=== PATIENT | male | born 1965 | race Caucasian/White ===

== ENCOUNTER 2016-10-23 14:58 | Observation (INO) | payer BC, OTHER ==
[~2016-10-23] VITALS: Ht 182.9 cm; Wt 93.6 kg
[~2016-10-23 14:58] MED LIST: ALLDSR/24 PO; FLUT50SP14 NAE
--- NOTE | 2016-10-23 15:16 | EMERGENCY ROOM VISIT NOTE ---
History First contact with patient: 15:07 Chief Complaint: ABDOMINAL PAIN Stated Complaint: STOMACH PAIN AFTER, UPPER GI PROCEDURE TODAY Nursing Triage Summary: Pt states he had an upper GI today and now has pain in stomach, left rib cage and bilateral lower back. Pt states he can't because "as soon as it goes down it's a Knifing pain" Mansoor told him to come in. History of Present Illness The patient is a 50 year old male who presents to the Emergency Room with complaints of 8/10 severity sharp abdominal pain s/p EGD with dilation of Schatzki's ring. After getting home after his EGD this morning he then started having mild but progressively getting worse pain. Started under upper left rib cage then moved to epigastric region and under right rib cage. Worse on lying down and eating/drinking. No change in bowel habit, no GI bleeding. He denies dizziness, shortness of breath, chest pain, fevers or chills. 9:15 am started having pain. Dr Max. Pain in upper abdomen started in upper left rib cage then moved to stomach then travelled to middle worse on lying down. worse on eating and drinking. No change blood, change in bowel habit, no nausea or vomiting. No SOB or chest pain. No fevers or chills. Review of Systems See HPI for pertinent positives & negatives. A total of 10 systems reviewed and were otherwise negative. 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) Current/Historical Medications Scheduled Fexofenadine-Pseudoephedrine (Lianet-D 24 Hour Allergy), 1 TAB PO DAILY Fluticasone Propionate (Flonase Nasal [place]), 2 SPRAYS FLORY DAILY Allergies Coded Allergies: No Known Allergies (Unverified , 10/23/16) Physical Exam Vital Signs Date Time Temp Pulse Resp B/P (MAP) Pulse Ox O2 Delivery O2 Flow Rate FiO2 10/23/16 17:00 79 18 148/122 96 Room Air 10/23/16 15:02 76 16 138/92 95 Physical Exam VITAL SIGNS: were reviewed as above GENERAL: no acute distress while standing, mild pain on lying down SKIN: Warm dry and pink, no rashes OROPHARYNX: non erythematous, clear and moist NECK: Supple, no adenopathy or meningismus LUNGS: Chest non tender, clear to auscultation, no accessory muscle use HEART: Regular rate and rhythm, heart sounds 1+2, no murmurs ABDOMEN: Mild tenderness over central abdomen without rebound or guarding, soft , bowel sounds normal BACK: no CVA tenderness, no central spinal tenderness EXTREMITIES: Warm and well perfused, no calf tenderness/swelling, no pedal edema. NEUROLOGICALLY: Awake alert and oriented without overt focal deficit. Medical Decision & Procedures ER Provider Diagnostic Interpretation: CHEST CT WITH CONTRAST CT DOSE: 240.17 mGy.cm HISTORY: Pain with quick prep as discussed with Dr Ventura TECHNIQUE: Multiaxial CT images of the chest were performed following the intravenous administration of contrast. COMPARISON: None. FINDINGS: The lungs are considered clear. No evidence for pneumothorax or infiltrate. Contrast is a is identified within the esophagus. Fixed lateral hernia is present. There is a linear contrast collection within the left lateral wall of the mid esophagus measuring approximately 3 x 0.5 cm. There is no evidence for extraluminal extension. This appears to be a focal partial tear of the mid thoracic esophagus. There is again no contrast extension to the periesophageal structures. A hiatal hernia is present. Stomach appears to be unremarkable. There is no free air. There is a right pericardial cyst. There are several small hepatic cysts throughout the right as well as left hepatic lobe. IMPRESSION: 1. Linear partial thickness tear of the mid thoracic esophagus. 2. Contrast is seen anteriorly in the left lateral wall of the mid thoracic esophagus, with no evidence for extrinsic extension of contrast to the surrounding soft tissues.. 3. This is consistent with a partial thickness tear of the esophageal wall. 4. Lungs appear clear with the stomach unremarkable. Electronically signed by: Anshul Wiseman M.D. 10/23/2016 4:21 PM Dictated Date/Time: 10/23/2016 4:12 PM Laboratory Results 10/23/16 15:23 Red Blood Count 5.11, Mean Corpuscular Volume 91.2, Mean Corpuscular Hemoglobin 29.7, Mean Corpuscular Hemoglobin Concent 32.6, Mean Platelet Volume 8.8, Neutrophils (%) (Auto) 72.6, Lymphocytes (%) (Auto) 18.5, Monocytes (%) (Auto) 6.2, Eosinophils (%) (Auto) 2.4, Basophils (%) (Auto) 0.2, Neutrophils # (Auto) 7.71, Lymphocytes # (Auto) 1.97, Monocytes # (Auto) 0.66, Eosinophils # (Auto) 0.25, Basophils # (Auto) 0.02 10/23/16 15:23 Test 10/23/16 15:23 10/23/16 15:37 10/23/16 15:40 White Blood Count 10.62 K/uL (4.8-10.8) Red Blood Count 5.11 M/uL (4.7-6.1) Hemoglobin 15.2 g/dL (14.0-18.0) Hematocrit 46.6 % (42-52) Mean Corpuscular Volume 91.2 fL (80-100) Mean Corpuscular Hemoglobin 29.7 pg (25-34) Mean Corpuscular Hemoglobin Concent 32.6 g/dl (32-36) Platelet Count 198 K/uL (130-400) Mean Platelet Volume 8.8 fL (7.4-10.4) Neutrophils (%) (Auto) 72.6 % Lymphocytes (%) (Auto) 18.5 % Monocytes (%) (Auto) 6.2 % Eosinophils (%) (Auto) 2.4 % Basophils (%) (Auto) 0.2 % Neutrophils # (Auto) 7.71 K/uL (1.4-6.5) Lymphocytes # (Auto) 1.97 K/uL (1.2-3.4) Monocytes # (Auto) 0.66 K/uL (0.11-0.59) Eosinophils # (Auto) 0.25 K/uL (0-0.5) Basophils # (Auto) 0.02 K/uL (0-0.2) RDW Standard Deviation 43.0 fL (36.4-46.3) RDW Coefficient of Variation 12.9 % (11.5-14.5) Immature Granulocyte % (Auto) 0.1 % Immature Granulocyte # (Auto) 0.01 K/uL (0.00-0.02) Est Creatinine Clear Calc Drug Dose 73.5 ml/min Estimated GFR () 74.3 Estimated GFR (Non- 64.1 BUN/Creatinine Ratio 6.3 (10-20) Calcium Level 8.8 mg/dl (8.5-10.1) Total Bilirubin 0.8 mg/dl (0.2-1) Direct Bilirubin 0.2 mg/dl (0-0.2) Aspartate Amino Transf (AST/SGOT) 15 U/L (15-37) Alanine Aminotransferase (ALT/SGPT) 21 U/L (12-78) Alkaline Phosphatase 82 U/L (45-117) Total Protein 7.3 gm/dl (6.4-8.2) Albumin 3.9 gm/dl (3.4-5.0) Lipase 122 U/L (73-393) Bedside Hemoglobin 15.3 g/dl (14.0-18.0) Bedside Hematocrit 45 % (42-52) Bedside Sodium 141 mEq/L (135-144) Bedside Potassium 3.9 mEq/L (3.3-5.0) Bedside Chloride 99 mEq/L (101-112) Bedside Total CO2 29 mEq/l (24-31) Anion Gap 18.0 mmol/L (16-25) Bedside Blood Urea Nitrogen 8 mg/dl (7-18) Bedside Creatinine 1.0 mg/dl (0.6-1.3) Bedside Glucose (other) 98 mg/dl (70-99) Bedside Ionized Calcium (Carina) 1.13 mmol/l (1.12-1.32) Urine Color YELLOW Urine Appearance CLEAR (CLEAR) Urine pH 7.0 (4.5-7.5) Urine Specific [place] 1.010 (1.000-1.030) Urine Protein NEG (NEG) Urine Glucose (UA) NEG (NEG) Urine Ketones NEG (NEG) Urine Occult Blood NEG (NEG) Urine Nitrite NEG (NEG) Urine Bilirubin NEG (NEG) Urine Urobilinogen NEG (NEG) Urine Leukocyte Esterase NEG (NEG) Medications Administered Medications (Trade) Dose Ordered Sig/Tona Route Start Time Stop Time Status Last Admin Dose Admin Sodium Chloride 1,000 ml @ 150 mls/hr [id number] IV 10/23/16 17:34 11/22/16 17:33 10/23/16 21:37 150 MLS/HR ED Course 17[facility] for [facility] Medical Decision Prior records/ancillary studies reviewed. Triage Nursing notes reviewed. Additional history obtained from patient and Isi Ching The patient's history was concerning for abdominal pain s/p EGD with dilation. Differential diagnosis: Etiologies such as esophageal tear, gastric perforation, appendicitis, diverticulitis, PUD, biliary pathology, UTI, pancreatitis, obstruction, mesenteric ischemia, aortic pathology, infections, inflammatory bowel disease, renal colic, as well as others were entertained. Physical examination findings: As above. ER treatment provided: IV fluids On reassessment the patient felt the same, denied any need for pain medication. Diagnostics interpreted by me: The labs were unremarkable Imaging studies: CT showed linear partial thickness tear of the mid thoracic esophagus Consultation: A consultation was placed with Adan TAVERAS. The case was discussed and diagnostics were reviewed. The patient was evaluated in the ER for further treatment. A consultation was placed with [facility]. The case was discussed and diagnostics were reviewed. The patient was evaluated in the ER for further treatment. Consistent examination and CT of partial esophageal tear. By the evaluation outlined above emergent etiologies such as appendicitis, diverticulitis, PUD, biliary pathology, UTI, pancreatitis, obstruction, mesenteric ischemia, aortic pathology, infections, inflammatory bowel disease, renal colic, as well as others were deemed relatively unlikely. The patient was informed about the findings as listed above. All questions were answered and he was pleased with the treatment. Consults Time Called: 16:00 Consulting Physician: Adan TAVERAS (Isi Ching) Returned Call: 16:35 Already saw patient but need to speak to Dr Max Returned call at 16:[address] Gabriel who advised NPO, IVF, Pantoprazole 40 mg BID, Additional Consults: Time Called: 16:57 [facility]Dr Wong[facility] Returned Call: 17:05 Additional Comments: Discussed plan from GI team and need for admission, accepted patient for evaluation Impression Primary Impression: Esophageal tear Departure Information Dispostion Home / Self-Care Condition GOOD Referrals No Doctor, Assigned (PCP) Marva Miller, DO Patient Instructions My [facility] Resident Tracking Resident Involvement: Resident Care Provided Care Provided: Adult ED Problem Qualifiers Primary Impression: Esophageal tear Encounter type: initial encounter Qualified Codes: S11.21XA - Laceration without foreign body of pharynx and cervical esophagus, initial encounter
[2016-10-23] MEDS ORDERED: OPTIRAY 320 IV PRN (15:30)
[2016-10-23 15:38] LABS: BASO % 0.2 %; BASO ABS # 0.02 K/uL (0-0.2); COMPLETE YES; EOS % 2.4 %; HEMATOCRIT 46.6 % (42-52); IG% 0.1 %; LYMPH % 18.5 %; LYMPH ABS # 1.97 K/uL (1.2-3.4); MEAN CELL VOLUME 91.2 fL (80-100); MEAN CORPUSCULAR HEMOGLOBIN 29.7 pg (25-34); MEAN CORPUSCULAR HGB CONC 32.6 g/dl (32-36); MEAN PLATELET VOLUME 8.8 fL (7.4-10.4); MONO % 6.2 %; NEUT % 72.6 %; PLATELET COUNT 198 K/uL (130-400); RED BLOOD COUNT 5.11 M/uL (4.7-6.1); WHITE BLOOD COUNT 10.62 K/uL (4.8-10.8)
[2016-10-23 15:54] LABS: ISTAT HEMOGLOBIN 15.3 g/dl (14.0-18.0); ISTAT IONIZED CALCIUM 1.13 mmol/l (1.12-1.32)
[2016-10-23 15:55] LABS: BUN/CREATININE RATIO 6.3 (10-20); CALCIUM 8.8 mg/dl (8.5-10.1); CREATININE 1.3 mg/dl (0.60-1.40); POTASSIUM 3.8 mmol/L (3.5-5.1)
--- NOTE | 2016-10-23 16:02 | Progress Note ---
Progress Note Date of Service Oct 23, 2016. (Isi Ching ., PAT) Progress Note Pt was seen and evaluated in B9 at 1540. He had an EGD this morning for dysphagia with Dr. Miller - schatzki ring was dilated with a 51 English with mild resistance. Pt tolerated procedure well and was discharged home. He tells me after his procedure he developed abdominal pain. This is worse when he is sitting down, relieved when he stands up. Pain radiates to his back. Described as a sharp constant sensation that becomes sharp-stabbing with positional changes and spontaneously. Denies any fever, chills, chest pain, SOB, nausea, vomiting, regurgitation, painful/difficulty swallowing, esophageal pain, black/ bloody stools. Labs pending and VSS. EGD 10/23/16: A moderate Schatzki ring (acquired) was found in the lower third of the esophagus. A guidewire was placed and the scope was withdrawn. Dilation was performed with a Savary dilator with mild resistance at 51 Fr. Estimated blood loss was minimal. Normal mucosa was found in the middle third of the esophagus. Biopsies were taken with a cold forceps for histology. Verification of patient identification for the specimen was done by the physician and nurse using the patient's name and date. Estimated blood loss was minimal. The stomach was normal. The examined duodenum was normal No acute distress. Lungs are CTA. Heart is RRR. Abdomen is soft, non-distended with + BS. Pain likely secondary to EGD today, however suspicion for esophageal perforation is low - suggest we obtain CT to rule out esophageal perforation and admit for observation. CT reviewed - linear partial thickness tear or mid thoracic esophagus, no evidence of extraluminal extension without any contrast in the periesophageal structure. Stomach unremarkable without any free air. Admit for observation, keep NPO, IV PPI and pain control. (Isi Ching ., MARGIN ANALYST)
[2016-10-23 16:05] LABS: URINE APPEARANCE CLEAR (CLEAR); URINE BILIRUBIN NEG (NEG); URINE COLOR YELLOW; URINE NITRITE NEG (NEG); UROBILINOGEN NEG (NEG)
[2016-10-23 16:06] LABS: MANUAL MICROSCOPIC REQUIRED? NO; REVIEW REQ? NO
--- NOTE | 2016-10-23 16:22 | DIAGNOSTIC IMAGING REPORT ---
CHEST CT WITH CONTRAST CT DOSE: 240.17 mGy.cm HISTORY: Pain with quick prep as discussed with Dr Ventura TECHNIQUE: Multiaxial CT images of the chest were performed following the intravenous administration of contrast. COMPARISON: None. FINDINGS: The lungs are considered clear. No evidence for pneumothorax or infiltrate. Contrast is a is identified within the esophagus. Fixed lateral hernia is present. There is a linear contrast collection within the left lateral wall of the mid esophagus measuring approximately 3 x 0.5 cm. There is no evidence for extraluminal extension. This appears to be a focal partial tear of the mid thoracic esophagus. There is again no contrast extension to the periesophageal structures. A hiatal hernia is present. Stomach appears to be unremarkable. There is no free air. There is a right pericardial cyst. There are several small hepatic cysts throughout the right as well as left hepatic lobe. IMPRESSION: 1. Linear partial thickness tear of the mid thoracic esophagus. 2. Contrast is seen anteriorly in the left lateral wall of the mid thoracic esophagus, with no evidence for extrinsic extension of contrast to the surrounding soft tissues.. 3. This is consistent with a partial thickness tear of the esophageal wall. 4. Lungs appear clear with the stomach unremarkable. Electronically signed by: Anshul Wiseman M.D. 10/23/2016 4:21 PM Dictated Date/Time: 10/23/2016 4:12 PM
--- NOTE | 2016-10-23 16:35 | EMERGENCY ROOM VISIT NOTE ---
ED Visit Note First contact with patient: 15:01 Resident Physician Supervision Note: I interviewed and examined the patient. Discussed with Dr. Porter and agree with findings and plan as documented in the note. Documented By: Yazan Ventura Current/Historical Medications Scheduled Fexofenadine-Pseudoephedrine (Lianet-D 24 Hour Allergy), 1 TAB PO DAILY Fluticasone Propionate (Flonase Nasal [place]), 2 SPRAYS FLORY DAILY Allergies Coded Allergies: No Known Allergies (Unverified , 10/23/16) Vital Signs Date Time Temp Pulse Resp B/P (MAP) Pulse Ox O2 Delivery O2 Flow Rate FiO2 10/23/16 15:02 76 16 138/92 95 Laboratory Results 10/23/16 15:23 Red Blood Count 5.11, Mean Corpuscular Volume 91.2, Mean Corpuscular Hemoglobin 29.7, Mean Corpuscular Hemoglobin Concent 32.6, Mean Platelet Volume 8.8, Neutrophils (%) (Auto) 72.6, Lymphocytes (%) (Auto) 18.5, Monocytes (%) (Auto) 6.2, Eosinophils (%) (Auto) 2.4, Basophils (%) (Auto) 0.2, Neutrophils # (Auto) 7.71, Lymphocytes # (Auto) 1.97, Monocytes # (Auto) 0.66, Eosinophils # (Auto) 0.25, Basophils # (Auto) 0.02 10/23/16 15:23 Test 10/23/16 15:23 10/23/16 15:37 10/23/16 15:40 White Blood Count 10.62 K/uL (4.8-10.8) Red Blood Count 5.11 M/uL (4.7-6.1) Hemoglobin 15.2 g/dL (14.0-18.0) Hematocrit 46.6 % (42-52) Mean Corpuscular Volume 91.2 fL (80-100) Mean Corpuscular Hemoglobin 29.7 pg (25-34) Mean Corpuscular Hemoglobin Concent 32.6 g/dl (32-36) Platelet Count 198 K/uL (130-400) Mean Platelet Volume 8.8 fL (7.4-10.4) Neutrophils (%) (Auto) 72.6 % Lymphocytes (%) (Auto) 18.5 % Monocytes (%) (Auto) 6.2 % Eosinophils (%) (Auto) 2.4 % Basophils (%) (Auto) 0.2 % Neutrophils # (Auto) 7.71 K/uL (1.4-6.5) Lymphocytes # (Auto) 1.97 K/uL (1.2-3.4) Monocytes # (Auto) 0.66 K/uL (0.11-0.59) Eosinophils # (Auto) 0.25 K/uL (0-0.5) Basophils # (Auto) 0.02 K/uL (0-0.2) RDW Standard Deviation 43.0 fL (36.4-46.3) RDW Coefficient of Variation 12.9 % (11.5-14.5) Immature Granulocyte % (Auto) 0.1 % Immature Granulocyte # (Auto) 0.01 K/uL (0.00-0.02) Est Creatinine Clear Calc Drug Dose 73.5 ml/min Estimated GFR () 74.3 Estimated GFR (Non- 64.1 BUN/Creatinine Ratio 6.3 (10-20) Calcium Level 8.8 mg/dl (8.5-10.1) Total Bilirubin 0.8 mg/dl (0.2-1) Direct Bilirubin 0.2 mg/dl (0-0.2) Aspartate Amino Transf (AST/SGOT) 15 U/L (15-37) Alanine Aminotransferase (ALT/SGPT) 21 U/L (12-78) Alkaline Phosphatase 82 U/L (45-117) Total Protein 7.3 gm/dl (6.4-8.2) Albumin 3.9 gm/dl (3.4-5.0) Lipase 122 U/L (73-393) Bedside Hemoglobin 15.3 g/dl (14.0-18.0) Bedside Hematocrit 45 % (42-52) Bedside Sodium 141 mEq/L (135-144) Bedside Potassium 3.9 mEq/L (3.3-5.0) Bedside Chloride 99 mEq/L (101-112) Bedside Total CO2 29 mEq/l (24-31) Anion Gap 18.0 mmol/L (16-25) Bedside Blood Urea Nitrogen 8 mg/dl (7-18) Bedside Creatinine 1.0 mg/dl (0.6-1.3) Bedside Glucose (other) 98 mg/dl (70-99) Bedside Ionized Calcium (Carina) 1.13 mmol/l (1.12-1.32) Urine Color YELLOW Urine Appearance CLEAR (CLEAR) Urine pH 7.0 (4.5-7.5) Urine Specific [place] 1.010 (1.000-1.030) Urine Protein NEG (NEG) Urine Glucose (UA) NEG (NEG) Urine Ketones NEG (NEG) Urine Occult Blood NEG (NEG) Urine Nitrite NEG (NEG) Urine Bilirubin NEG (NEG) Urine Urobilinogen NEG (NEG) Urine Leukocyte Esterase NEG (NEG) Departure Information Referrals No Doctor, Assigned (PCP) Patient Instructions My [facility]
[2016-10-23] MEDS ORDERED: SODIUM CHLORIDE 0.9% 1000ML 1,000 ML IV SCH (16:45)
--- NOTE | 2016-10-23 17:15 | History and Physical ---
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 Patient had EGD for dilatation of the ring. Patient complains of LUQ abdominal pain which he describes as sharp, 8/10 intensity, radiates to back and abdomen, intermittent which lasts for few seconds, pain is worse with eating, lying down, sitting and is relived with standing. Currently denies any history of SOB, fever, chills, chest pain, nausea, vomiting, diarrhea , bloody stools, dizziness. CT chest is suggestive of linear partial thickness tear of the mid thoracic esophagus. Past Medical/Surgical History Past Medical History: Esophageal Tear Petit mal seizures as a child Past Surgical History: S/P EGD for dilatation of Schatzki's ring Family History Reviewed. 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 A total of 10 systems reviewed and were otherwise negative. Physical Exam Vital Signs Date Time Temp Pulse Resp B/P (MAP) Pulse Ox O2 Delivery O2 Flow Rate FiO2 10/23/16 17:00 79 18 148/122 96 Room Air 10/23/16 15:02 76 16 138/92 95 General Appearance: WD/WN, no apparent distress Head: normocephalic, atraumatic Eyes: normal inspection, PERRL, EOMI, sclerae normal ENT: normal ENT inspection, hearing grossly normal Neck: supple, no JVD, trachea midline Respiratory/Chest: chest non-tender, lungs clear, normal breath sounds, no respiratory distress, no accessory muscle use Cardiovascular: regular rate, rhythm, no edema, no murmur Abdomen/GI: normal bowel sounds, non tender, soft Back: normal inspection Extremities/Musculoskelatal: normal inspection, no pedal edema 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, no motor/sensory deficits, alert, normal mood/affect, oriented x 3 Skin: normal color, warm/dry Diagnostics Laboratory Results Results Past 24 Hours Test 10/23/16 15:23 10/23/16 15:37 10/23/16 15:40 Range/Units White Blood Count 10.62 4.8-10.8 K/uL Red Blood Count 5.11 4.7-6.1 M/uL Hemoglobin 15.2 14.0-18.0 g/dL Hematocrit 46.6 42-52 % Mean Corpuscular Volume 91.2 80-100 fL Mean Corpuscular Hemoglobin 29.7 25-34 pg Mean Corpuscular Hemoglobin Concent 32.6 32-36 g/dl Platelet Count 198 130-400 K/uL Mean Platelet Volume 8.8 7.4-10.4 fL Neutrophils (%) (Auto) 72.6 % Lymphocytes (%) (Auto) 18.5 % Monocytes (%) (Auto) 6.2 % Eosinophils (%) (Auto) 2.4 % Basophils (%) (Auto) 0.2 % Neutrophils # (Auto) 7.71 1.4-6.5 K/uL Lymphocytes # (Auto) 1.97 1.2-3.4 K/uL Monocytes # (Auto) 0.66 0.11-0.59 K/uL Eosinophils # (Auto) 0.25 0-0.5 K/uL Basophils # (Auto) 0.02 0-0.2 K/uL RDW Standard Deviation 43.0 36.4-46.3 fL RDW Coefficient of Variation 12.9 11.5-14.5 % Immature Granulocyte % (Auto) 0.1 % Immature Granulocyte # (Auto) 0.01 0.00-0.02 K/uL Sodium Level 142 136-145 mmol/L Potassium Level 3.8 3.5-5.1 mmol/L Chloride Level 104 98-107 mmol/L Carbon Dioxide Level 31 21-32 mmol/L Anion Gap 7.0 18.0 16-25 mmol/L Blood Urea Nitrogen 8 7-18 mg/dl Creatinine 1.30 0.60-1.40 mg/dl Est Creatinine Clear Calc Drug Dose 73.5 ml/min Estimated GFR () 74.3 Estimated GFR (Non- 64.1 BUN/Creatinine Ratio 6.3 10-20 Random Glucose 95 70-99 mg/dl Calcium Level 8.8 8.5-10.1 mg/dl Total Bilirubin 0.8 0.2-1 mg/dl Direct Bilirubin 0.2 0-0.2 mg/dl Aspartate Amino Transf (AST/SGOT) 15 15-37 U/L Alanine Aminotransferase (ALT/SGPT) 21 12-78 U/L Alkaline Phosphatase 82 45-117 U/L Total Protein 7.3 6.4-8.2 gm/dl Albumin 3.9 3.4-5.0 gm/dl Lipase 122 73-393 U/L Bedside Hemoglobin 15.3 14.0-18.0 g/dl Bedside Hematocrit 45 42-52 % Bedside Sodium 141 135-144 mEq/L Bedside Potassium 3.9 3.3-5.0 mEq/L Bedside Chloride 99 101-112 mEq/L Bedside Total CO2 29 24-31 mEq/l Bedside Blood Urea Nitrogen 8 7-18 mg/dl Bedside Creatinine 1.0 0.6-1.3 mg/dl Bedside Glucose (other) 98 70-99 mg/dl Bedside Ionized Calcium (Carina) 1.13 1.12-1.32 mmol/l Urine Color YELLOW Urine Appearance CLEAR CLEAR Urine pH 7.0 4.5-7.5 Urine Specific [place] 1.010 1.000-1.030 Urine Protein NEG NEG Urine Glucose (UA) NEG NEG Urine Ketones NEG NEG Urine Occult Blood NEG NEG Urine Nitrite NEG NEG Urine Bilirubin NEG NEG Urine Urobilinogen NEG NEG Urine Leukocyte Esterase NEG NEG Diagnostic Radiology CT chest: 1. Linear partial thickness tear of the mid thoracic esophagus. 2. Contrast is seen anteriorly in the left lateral wall of the mid thoracic esophagus, with no evidence for extrinsic extension of contrast to the surrounding soft tissues.. 3. This is consistent with a partial thickness tear of the esophageal wall. 4. Lungs appear clear with the stomach unremarkable. Impression Assessment and Plan Linear partial thickness mid thoracic esophageal Tear Presented with LUQ abdominal Pain S/P EGD NPO for now IV fluids Morphine RN for pain control IV famotidine GI on board H/O Schatzki's ring S/P EGD and dilatation on 10/23/16 Appreciate GI input H/O Petit mal seizures as a child No seizures since many years Currently not on any medications DVT px: SCDs Disposition: Admit in Tele under Observation status PROCEDURES: CT chest: 1. Linear partial thickness tear of the mid thoracic esophagus. 2. Contrast is seen anteriorly in the left lateral wall of the mid thoracic esophagus, with no evidence for extrinsic extension of contrast to the surrounding soft tissues.. 3. This is consistent with a partial thickness tear of the esophageal wall. 4. Lungs appear clear with the stomach unremarkable.
[2016-10-23] MEDS ORDERED: ONDANSETRON INJ 2 MG/ML 2 ML VIAL IV PRN (17:45)
[2016-10-23 20:50] VITALS: BP 142/98; PULSE 86; TEMP 36.9; O2SAT 96; Ht 182.9 cm; Wt 93.6 kg
[2016-10-23] MEDS ORDERED: NURSING VERBAL MED ORDER ONE (21:15)
[2016-10-23] MEDS ORDERED: PIPERACILL/TAZOBAC IV 3.375 GM in DEXTROSE 5% 100ML IV ONE (21:30)
[2016-10-23] MEDS: ACETAMINOPHEN IV 650 MG in EMPTY BAG 0 ML IV PRN (21:37)
[2016-10-23] MEDS: SODIUM CHLORIDE 0.9% 1000ML 1,000 ML IV SCH (21:37)
[2016-10-23] MEDS: MoRPHine SULFATE 2 MG/ML CARP IV PRN (21:38)
[2016-10-23] MEDS ORDERED: PIPERACILL/TAZOBAC CONSULT ACTIVE PRN (21:45)
[2016-10-23] MEDS: FAMOTIDINE IV INJ 20 MG in DEXTROSE 5% 100ML 100 ML IV SCH (21:55)
[2016-10-23] MEDS ORDERED: IV FLUIDS COMPLETED PRN (22:00)
[2016-10-23] MEDS: METRONIDAZOLE 500MG / NSS IV SCH (22:57)
[2016-10-24] VITALS (8 sets, daily range): BP systolic 122–144; BP diastolic 78–95; PULSE 59–78; TEMP 36.7–36.9; O2SAT 94–96
[2016-10-24] MEDS: PIPERACILL/TAZOBAC IV 3.375 GM in DEXTROSE 5% 100ML IV SCH ×3 (04:04→19:57)
[2016-10-24] MEDS: MoRPHine SULFATE 2 MG/ML CARP IV PRN ×2 (04:05→08:11)
[2016-10-24] MEDS: SODIUM CHLORIDE 0.9% 1000ML 1,000 ML IV SCH ×4 (04:36→19:56)
[2016-10-24] MEDS: METRONIDAZOLE 500MG / NSS IV SCH ×3 (05:59→21:52)
[2016-10-24 06:53] LABS: CREATININE 1.2 mg/dl (0.60-1.40)
[2016-10-24] MEDS: FLUTICASONE PROPIONATE NA SPR 16 GM BTL NAE SCH (08:12)
[2016-10-24] MEDS: FAMOTIDINE IV INJ 20 MG in DEXTROSE 5% 100ML 100 ML IV SCH (08:16)
--- NOTE | 2016-10-24 09:08 | Progress Note ---
Internal Med Progress Note Date of Service: Oct 24, 2016. Provider Documentation: SUBJECTIVE: Seen and examined at bedside. States abd pain is decreased in frequency and duration but still persistent. Pain comes every few minutes and radiates all across the abdomen and back. Denies nausea, vomiting, chest pain, SOB, fever, chills. OBJECTIVE: Vital Signs-as noted below General Appearance: WD/WN, no apparent distress Head: normocephalic, atraumatic Eyes: normal inspection, PERRL, EOMI, sclerae normal ENT: normal ENT inspection, hearing grossly normal Neck: supple, no JVD, trachea midline Respiratory/Chest: Normal breath sounds, CTA Cardiovascular: regular rate, rhythm, no edema, no murmur Abdomen/GI: normal bowel sounds, non tender, soft Back: normal inspection Extremities/Musculoskelatal: normal inspection, no pedal edema Neurologic/Psych: surgical consultant II-XII nml as tested, no motor/sensory deficits, alert, normal mood/affect, oriented x 3 Skin: normal color, warm/dry Lab data as noted below. ASSESSMENT & PLAN: Linear partial thickness mid thoracic esophageal Tear Presented with LUQ abdominal Pain S/P EGD NPO for now Continue IV fluids Morphine/Tylenol PRN for pain control Continue PPI BID On IV Zosyn and Flagyl empirically GI on board Will consult CT surgery H/O Schatzki's ring S/P EGD and dilatation on 10/23/16 Appreciate GI input H/O Petit mal seizures as a child No seizures since many years Currently not on any medications DVT px: SCDs Disposition: Continue to monitor PROCEDURES: CT chest: 1. Linear partial thickness tear of the mid thoracic esophagus. 2. Contrast is seen anteriorly in the left lateral wall of the mid thoracic esophagus, with no evidence for extrinsic extension of contrast to the surrounding soft tissues.. 3. This is consistent with a partial thickness tear of the esophageal wall. 4. Lungs appear clear with the stomach unremarkable. Vital Signs: Date Time Temp Pulse Resp B/P (MAP) Pulse Ox O2 Delivery O2 Flow Rate FiO2 10/24/16 15:56 36.7 59 16 140/94 (109) 95 Room Air 10/24/16 13:20 36.9 75 16 140/95 (110) 96 Room Air 10/24/16 12:46 36.8 74 18 94 10/24/16 12:00 Room Air 10/24/16 11:34 36.8 74 18 134/90 (105) 94 Room Air 10/24/16 08:00 Room Air 10/24/16 07:26 36.8 76 16 144/87 (106) 96 Room Air 10/24/16 04:01 36.8 78 20 136/93 (107) 95 Room Air 10/24/16 04:00 Room Air 10/24/16 00:10 36.8 63 18 134/87 (103) 96 Room Air 10/24/16 00:02 Room Air 10/23/16 22:00 Room Air 10/23/16 20:50 36.9 86 16 142/98 96 Room Air 10/23/16 19:58 80 16 140/99 98 Room Air 10/23/16 18:24 75 18 152/98 97 Room Air 10/23/16 17:00 79 18 148/122 96 Room Air Lab Results: Results Past 24 Hours Test 10/24/16 05:27 10/24/16 10:30 10/24/16 11:28 Range/Units Creatinine 1.20 1.30 0.60-1.40 mg/dl Est Creatinine Clear Calc Drug Dose 88.5 81.7 ml/min Estimated GFR () 81.8 74.3 Estimated GFR (Non- 70.6 64.1 White Blood Count 9.38 4.8-10.8 K/uL Red Blood Count 4.62 4.7-6.1 M/uL Hemoglobin 14.0 14.0-18.0 g/dL Hematocrit 42.7 42-52 % Mean Corpuscular Volume 92.4 80-100 fL Mean Corpuscular Hemoglobin 30.3 25-34 pg Mean Corpuscular Hemoglobin Concent 32.8 32-36 g/dl Platelet Count 179 130-400 K/uL Mean Platelet Volume 8.8 7.4-10.4 fL Neutrophils (%) (Auto) 68.4 % Lymphocytes (%) (Auto) 21.5 % Monocytes (%) (Auto) 7.1 % Eosinophils (%) (Auto) 2.6 % Basophils (%) (Auto) 0.2 % Neutrophils # (Auto) 6.41 1.4-6.5 K/uL Lymphocytes # (Auto) 2.02 1.2-3.4 K/uL Monocytes # (Auto) 0.67 0.11-0.59 K/uL Eosinophils # (Auto) 0.24 0-0.5 K/uL Basophils # (Auto) 0.02 0-0.2 K/uL RDW Standard Deviation 43.6 36.4-46.3 fL RDW Coefficient of Variation 12.9 11.5-14.5 % Immature Granulocyte % (Auto) 0.2 % Immature Granulocyte # (Auto) 0.02 0.00-0.02 K/uL Sodium Level 141 136-145 mmol/L Potassium Level 4.4 3.5-5.1 mmol/L Chloride Level 104 98-107 mmol/L Carbon Dioxide Level 31 21-32 mmol/L Anion Gap 6.0 3-11 mmol/L Blood Urea Nitrogen 7 7-18 mg/dl BUN/Creatinine Ratio 5.4 10-20 Random Glucose 89 70-99 mg/dl Calcium Level 8.9 8.5-10.1 mg/dl Bedside Glucose 86 70-99 mg/dl
--- NOTE | 2016-10-24 09:22 | Gastrointestinal Consultation ---
Gastrointestinal Consultation Date of Consultation: Oct 24, 2016 Attending Physician: Marvin Consulting Physician: Harvey Reason for Consultation: pain after EGD, partial tear History of Present Illness Patient is a 50 year old male w/ PMH significant for GERD, schatzki ring and h/ o seizure disorder who presented through the EGD for abdominal pain following EGD with dilation found to have partial thickness tear of mid esophagus. He was admitted for observation and started on broad spectrum ABX. Pt was seen and evaluated this AM. He tells me his pain is slightly improved from yesterday. It is less frequent and less severe when it occurs. Still described as generalized abdominal pain and epigastric pain that is sharp stabbing and intermittent. Radiates to his back. Spontaneously resolves and lasts about 10-15 seconds presently. No associated symptoms - denies fever, chills, chest pain, SOB, nausea, burping, belching, black/bloody stools EGD 10/23/16: A moderate Schatzki ring (acquired) was found in the lower third of the esophagus. A guidewire was placed and the scope was withdrawn. Dilation was performed with a Savary dilator with mild resistance at 51 Fr. Estimated blood loss was minimal. Normal mucosa was found in the middle third of the esophagus. Biopsies were taken with a cold forceps for histology. Verification of patient identification for the specimen was done by the physician and nurse using the patient's name and date. Estimated blood loss was minimal. The stomach was normal. The examined duodenum was normal CT chest 10/24/16: Linear partial thickness tear of the mid thoracic esophagus. Contrast is seen anteriorly in the left lateral wall of the mid thoracic esophagus, with no evidence for extrinsic extension of contrast to the surrounding soft tissues. This is consistent with a partial thickness tear of the esophageal wall. Lungs appear clear with the stomach unremarkable. 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) Allergies Coded Allergies: No Known Allergies (Unverified , 10/23/16) Current Medications Home Meds and Scripts Medications Dose Route/Sig Max Daily Dose Days Date Category Lianet-D 24 Hour Allergy (Fexofenadine-Pseudoephedrine) 1 Tab Tab 1 Tab PO DAILY 11/09/11 Reported Flonase Nasal [place] (Fluticasone Propionate) 120 Sprays/6000 Mcg Inha 2 Sprays FLORY DAILY 11/09/11 Reported Review of Systems Constitutional: No fever, No chills Respiratory: No cough, No shortness of breath Cardiac: No chest pain, No edema Abdomen: + see HPI, + pain, No nausea, No vomiting, No diarrhea, No constipation, No GI bleeding Physical Exam Date Time Temp Pulse Resp B/P (MAP) Pulse Ox O2 Delivery O2 Flow Rate FiO2 10/24/16 08:00 Room Air 10/24/16 07:26 36.8 76 16 144/87 (106) 96 Room Air 10/24/16 04:01 36.8 78 20 136/93 (107) 95 Room Air 10/24/16 04:00 Room Air 10/24/16 00:10 36.8 63 18 134/87 (103) 96 Room Air 10/24/16 00:02 Room Air 10/23/16 22:00 Room Air 10/23/16 20:50 36.9 86 16 142/98 96 Room Air 10/23/16 19:58 80 16 140/99 98 Room Air 10/23/16 18:24 75 18 152/98 97 Room Air 10/23/16 17:00 79 18 148/122 96 Room Air 10/23/16 15:02 76 16 138/92 95 General Appearance: no apparent distress (pt is sitting upright in bed, watching TV, is curious about time of discharge ) Eyes: PERRL ENT: hearing grossly normal Neck: supple Respiratory/Chest: lungs clear, normal breath sounds, no respiratory distress, no accessory muscle use Cardiovascular: regular rate, rhythm, no gallop, no murmur Abdomen: normal bowel sounds, soft, no organomegaly, no pulsatile mass Neurologic/Psych: alert, normal mood/affect, oriented x 3 Skin: normal color Laboratory Results Last 24 Hours Test 10/23/16 15:23 10/23/16 15:37 10/23/16 15:40 10/24/16 05:27 White Blood Count 10.62 K/uL Red Blood Count 5.11 M/uL Hemoglobin 15.2 g/dL Hematocrit 46.6 % Mean Corpuscular Volume 91.2 fL Mean Corpuscular Hemoglobin 29.7 pg Mean Corpuscular Hemoglobin Concent 32.6 g/dl Platelet Count 198 K/uL Mean Platelet Volume 8.8 fL Neutrophils (%) (Auto) 72.6 % Lymphocytes (%) (Auto) 18.5 % Monocytes (%) (Auto) 6.2 % Eosinophils (%) (Auto) 2.4 % Basophils (%) (Auto) 0.2 % Neutrophils # (Auto) 7.71 K/uL Lymphocytes # (Auto) 1.97 K/uL Monocytes # (Auto) 0.66 K/uL Eosinophils # (Auto) 0.25 K/uL Basophils # (Auto) 0.02 K/uL RDW Standard Deviation 43.0 fL RDW Coefficient of Variation 12.9 % Immature Granulocyte % (Auto) 0.1 % Immature Granulocyte # (Auto) 0.01 K/uL Sodium Level 142 mmol/L Potassium Level 3.8 mmol/L Chloride Level 104 mmol/L Carbon Dioxide Level 31 mmol/L Anion Gap 7.0 mmol/L 18.0 mmol/L Blood Urea Nitrogen 8 mg/dl Creatinine 1.30 mg/dl 1.20 mg/dl Est Creatinine Clear Calc Drug Dose 73.5 ml/min 88.5 ml/min Estimated GFR () 74.3 81.8 Estimated GFR (Non- 64.1 70.6 BUN/Creatinine Ratio 6.3 Random Glucose 95 mg/dl Calcium Level 8.8 mg/dl Total Bilirubin 0.8 mg/dl Direct Bilirubin 0.2 mg/dl Aspartate Amino Transf (AST/SGOT) 15 U/L Alanine Aminotransferase (ALT/SGPT) 21 U/L Alkaline Phosphatase 82 U/L Total Protein 7.3 gm/dl Albumin 3.9 gm/dl Lipase 122 U/L Bedside Hemoglobin 15.3 g/dl Bedside Hematocrit 45 % Bedside Sodium 141 mEq/L Bedside Potassium 3.9 mEq/L Bedside Chloride 99 mEq/L Bedside Total CO2 29 mEq/l Bedside Blood Urea Nitrogen 8 mg/dl Bedside Creatinine 1.0 mg/dl Bedside Glucose (other) 98 mg/dl Bedside Ionized Calcium ([place]) 1.13 mmol/l Urine Color YELLOW Urine Appearance CLEAR Urine pH 7.0 Urine Specific [place] 1.010 Urine Protein NEG Urine Glucose (UA) NEG Urine Ketones NEG Urine Occult Blood NEG Urine Nitrite NEG Urine Bilirubin NEG Urine Urobilinogen NEG Urine Leukocyte Esterase NEG Impression Patient is a 50 year old male with abdominal pain following EGD with dilation found to have partial thickness tear of mid esophagus with no signs of free air or true perforation. Plan Continue IVF Continue broad spectrum ABX Pain control IV PPI GI to follow. Please call with questions. I performed a history and physical examination of the patient. I have discussed the patient's case, impression and plan with PAT Pedro. Her note reflects my findings and plan. Agree with following clinically and repeat CXR in am. Doing well clinically. Vazquez Gabriel MD
[2016-10-24] MEDS: ACETAMINOPHEN IV 650 MG in EMPTY BAG 0 ML IV PRN (09:35)
--- NOTE | 2016-10-24 10:26 | DIAGNOSTIC IMAGING REPORT ---
SINGLE VIEW CHEST CLINICAL HISTORY: Esophageal tear. FINDINGS: An AP, portable, upright chest radiograph is compared to study dated 03/22/2008 and correlated with chest CT dated 10/23/2016. The examination is degraded by portable technique and patient rotation. The cardiomediastinal silhouette is unremarkable. No pneumomediastinum is identified. Soft tissue along the right heart border corresponds to a pericardial cyst when correlated with the recent chest CT. There is minimal bibasilar atelectasis. The lungs and pleural spaces are otherwise clear. No pneumothorax is seen. The bony thorax is grossly intact. IMPRESSION: The lung are clear. Electronically signed by: Tommie Quigley M.D. 10/24/2016 10:25 AM Dictated Date/Time: 10/24/2016 10:23 AM
[2016-10-24 10:39] LABS: BASO % 0.2 %; BASO ABS # 0.02 K/uL (0-0.2); EOS % 2.6 %; HEMATOCRIT 42.7 % (42-52); IG% 0.2 %; LYMPH % 21.5 %; LYMPH ABS # 2.02 K/uL (1.2-3.4); MEAN CELL VOLUME 92.4 fL (80-100); MEAN CORPUSCULAR HEMOGLOBIN 30.3 pg (25-34); MEAN PLATELET VOLUME 8.8 fL (7.4-10.4); MONO % 7.1 %; NEUT % 68.4 %; PLATELET COUNT 179 K/uL (130-400); RED BLOOD COUNT 4.62 M/uL (4.7-6.1); WHITE BLOOD COUNT 9.38 K/uL (4.8-10.8)
[2016-10-24 10:46] LABS: COMPLETE YES; MEAN CORPUSCULAR HGB CONC 32.8 g/dl (32-36)
[2016-10-24 10:58] LABS: BUN/CREATININE RATIO 5.4 (10-20); CREATININE 1.3 mg/dl (0.60-1.40); POTASSIUM 4.4 mmol/L (3.5-5.1)
[2016-10-24 11:07] LABS: CALCIUM 8.9 mg/dl (8.5-10.1)
--- NOTE | 2016-10-24 12:08 | SURGICAL CONSULTATION ---
DATE OF CONSULTATION: 10/24/2016 REASON FOR CONSULTATION: Esophageal tear. HISTORY OF PRESENT ILLNESS: Lloyd Parmar is a 50-year-old otherwise healthy nonsmoker who has history of a small hiatal hernia with reflux for the last 25 years. He has been dilated every 4 or 5 years for the last 25 years. He has never really run into a problem with this. He underwent a dilatation yesterday on 10/23/2016. He did well; however, about an hour or so afterward, he developed chest pain. This patient is not a complainer. He presented to the Emergency Room, was admitted when a CT scan of his chest was performed with oral contrast and we had seen there was a linear tear in his lower mid esophagus, but there was no evidence of free perforation. He had no leukocytosis, no fever. He was admitted overnight, kept n.p.o., put on antibiotics, and today a chest x-ray was done and I was asked to see him for followup from a surgical standpoint. PAST MEDICAL HISTORY: 1. Gastroesophageal reflux disease. 2. Right pericardial cyst. 3. Gastroesophageal reflux disease. 4. Schatzki's ring. PAST SURGICAL HISTORY: None. MEDICATIONS AT HOME: Lianet and Flonase. ALLERGIES: No known drug allergies. 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 He has never smoked cigarettes. Occasionally will have an alcoholic beverage. He lives with his daughters. He lives here in [place] but is originally from [place], [place]. FAMILY MEDICAL HISTORY: The patient's children are healthy. REVIEW OF SYSTEMS: Before this, the patient was completely fine. He had no GI problems except for he felt like food was getting "stuck" in his lower esophagus. He had no palpitations. No other chest pain other than that described in history of present illness. He has had no shortness of breath, no cough, no fevers, no chills. He has had no other GI symptoms such as vomiting or diarrhea. He has had no symptoms. He has had no skin breakdown. PHYSICAL EXAMINATION: GENERAL: This is a well-developed, well-nourished male who stands 6 feet tall and weighs 206 pounds. He is awake, alert and oriented. HEENT: His extraocular movements are intact. His pupils are equal, round and reactive. Sclerae are anicteric. He has no nasolabial flattening. His tongue is midline. Oral mucosa is moist. NECK: Supple. He has no supraclavicular or cervical lymphadenopathy, neck vein distention, thyromegaly, or carotid bruits. LUNGS: Clear. HEART: He has a regular rate and rhythm of his heart. There is no Dariel's sign. ABDOMEN: Soft, nontender, with good bowel sounds. He has no crepitus. EXTREMITIES: He has excellent peripheral perfusion. He has no joint effusions. He has no peripheral edema. NEUROLOGIC: He is completely intact. DATA: I reviewed the CT scan with the radiologist. His white count this morning is 9380, hemoglobin stable at 14. His electrolytes looked fine. I reviewed the CT scan and the chest x-ray done today and I feel this is a contained tear that is not involving his full thickness. ASSESSMENT AND PLAN: 1. Partial esophageal tear. I do not think we would need to do anything different other than continue his antibiotics, keep him n.p.o. for another 24 hours. I think if his x-ray looks good tomorrow, I would allow him to start clear liquids. 2. Hiatal hernia with gastroesophageal reflux disease. It is interesting that he is on no proton pump inhibitors or H2 blockers. He did get biopsies done yesterday. 3. Right pericardial cyst. This has Hounsfield units on his CT scan which suggests water. I do not think this needs to be treated any further. I would just continue to watch it. I would like to thank Ms. Isi Ching for asking me to see this patient. At this point, I would not do anything different and this certainly does not require intervention. Thank you very much.
[2016-10-24] MEDS: PANTOprazole INJ 40 MG in SYRINGE 0 ML IV SCH (19:57)
[2016-10-25] VITALS: O2SAT 96
[2016-10-25] MEDS: SODIUM CHLORIDE 0.9% 1000ML 1,000 ML IV SCH (04:49)
[2016-10-25] MEDS: PIPERACILL/TAZOBAC IV 3.375 GM in DEXTROSE 5% 100ML IV SCH (04:49)
[2016-10-25] MEDS: METRONIDAZOLE 500MG / NSS IV SCH (06:08)
[2016-10-25 07:32] VITALS: BP 144/91; PULSE 79; TEMP 36.7; O2SAT 96
[2016-10-25 07:34] LABS: BASO % 0.3 %; BASO ABS # 0.03 K/uL (0-0.2); COMPLETE YES; EOS % 3.4 %; IG% 0.3 %; MEAN CELL VOLUME 91.1 fL (80-100); MEAN CORPUSCULAR HEMOGLOBIN 30.6 pg (25-34); MEAN CORPUSCULAR HGB CONC 33.6 g/dl (32-36); MEAN PLATELET VOLUME 8.9 fL (7.4-10.4); MONO % 6.9 %; NEUT % 63.1 %; PLATELET COUNT 192 K/uL (130-400); RED BLOOD COUNT 4.83 M/uL (4.7-6.1); WHITE BLOOD COUNT 8.84 K/uL (4.8-10.8)
--- NOTE | 2016-10-25 07:40 | DIAGNOSTIC IMAGING REPORT ---
CHEST ONE VIEW PORTABLE CLINICAL HISTORY: esophageal tear COMPARISON STUDY: 10/24/2016 FINDINGS: The cardiac and mediastinal contours remain stable. There is a prominent right cardiophrenic angle fat pad. There is no failure. There is no focal pulmonary consolidation. There are no pleural effusions. There is no pneumomediastinum.[ IMPRESSION: No active disease in the chest. Electronically signed by: Elvin Lee M.D. 10/25/2016 7:38 AM Dictated Date/Time: 10/25/2016 7:36 AM
--- NOTE | 2016-10-25 07:46 | Gastroenterology Progress Note ---
Progress Note Date of Service: Oct 25, 2016 Subjective Pt seen and examined this AM. He is feeling well and is anxious to go home. Abdominal pain that radiated to his back is much improved - occurs maybe once every three hours and it much less severe. Denies any fever, chills, chest pain , SOB, nausea, vomiting, black/bloody stools Chest XR 10/25/16: The cardiac and mediastinal contours remain stable. There is a prominent right cardiophrenic angle fat pad. There is no failure. There is no focal pulmonary consolidation. There are no pleural effusions. There is no pneumomediastinum. No active disease in the chest. Review of Systems Constitutional: No fever, No chills Respiratory: No cough, No shortness of breath Cardiac: No chest pain, No edema Abdomen: + pain (abdominal pain, significantly improved, intermittent about once every 3 hours, sharp stabbign lasts for a few minutes and spontaneously resolves), No nausea, No vomiting, No diarrhea, No constipation, No GI bleeding Medications Current Inpatient Medications Medications (Trade) Dose Ordered Sig/Tona Route Start Time Stop Time Status Last Admin Dose Admin Ioversol (Optiray 320) 100 ml UD PRN IV 10/23/16 15:30 10/27/16 15:29 Sodium Chloride 1,000 ml @ 150 mls/hr Q6H40M IV 10/23/16 17:34 11/22/16 17:33 10/25/16 04:49 150 MLS/HR Ondansetron HCl (Zofran Inj) 4 mg Q6H PRN IV 10/23/16 17:45 11/22/16 17:44 Morphine Sulfate (MoRPHine SULFATE INJ) 2 mg Q4H PRN IV 10/23/16 17:45 11/06/16 17:44 10/24/16 08:11 2 MG Fluticasone Propionate (Flonase Nasal [place]) 2 sprays DAILY FLORY 10/24/16 09:00 11/23/16 08:59 10/24/16 08:12 2 SPRAYS Acetaminophen 650 mg/Empty Bag 65 ml @ 260 mls/hr Q6H PRN IV 10/23/16 21:00 11/22/16 20:59 10/24/16 09:35 260 MLS/HR Piperacillin Sod/ Tazobactam Sod 3.375 gm/Dextrose 115 ml @ 28.75 mls/ hr Q8H IV 10/24/16 04:00 11/02/16 03:59 10/25/16 04:49 28.75 MLS/HR Metronidazole 500 mg/Prmx 100 ml @ 100 mls/hr Q8H IV 10/23/16 22:00 11/02/16 21:59 10/25/16 06:08 100 MLS/HR Piperacillin Sod/ Tazobactam Sod (Consult) 1 ea UD PRN N/A 10/23/16 21:45 11/22/16 21:44 Miscellaneous (Iv Fluids Completed) 1 ea PRN PRN N/A 10/23/16 22:00 10/23/17 21:59 Pantoprazole Sodium 40 mg/ Syringe 10 ml @ 5 mls/min BID@0900,2100 IV 10/24/16 21:00 11/23/16 20:59 10/24/16 19:57 5 MLS/MIN Objective Vital Signs Date Time Temp Pulse Resp B/P (MAP) Pulse Ox O2 Delivery O2 Flow Rate FiO2 10/25/16 07:32 36.7 79 18 144/91 (108) 96 Room Air 10/25/16 00:00 96 Room Air 10/24/16 23:09 36.8 61 18 122/78 (93) 96 Room Air 10/24/16 20:00 Room Air 10/24/16 16:00 Room Air 10/24/16 15:56 36.7 59 16 140/94 (109) 95 Room Air 10/24/16 13:20 36.9 75 16 140/95 (110) 96 Room Air 10/24/16 12:46 36.8 74 18 94 10/24/16 12:00 Room Air 10/24/16 11:34 36.8 74 18 134/90 (105) 94 Room Air 10/24/16 08:00 Room Air Physical Exam General Appearance: no apparent distress Eyes: PERRL ENT: hearing grossly normal Neck: supple Respiratory/Chest: lungs clear, normal breath sounds Cardiovascular: regular rate, rhythm Abdomen: normal bowel sounds, non tender, soft, no organomegaly Neurologic/Psych: alert, normal mood/affect, oriented x 3 Skin: normal color, no jaundice, warm/dry Laboratory Results Last 24 Hours Test 10/24/16 10:30 10/24/16 11:28 10/25/16 07:07 White Blood Count 9.38 K/uL 8.84 K/uL Red Blood Count 4.62 M/uL 4.83 M/uL Hemoglobin 14.0 g/dL 14.8 g/dL Hematocrit 42.7 % 44.0 % Mean Corpuscular Volume 92.4 fL 91.1 fL Mean Corpuscular Hemoglobin 30.3 pg 30.6 pg Mean Corpuscular Hemoglobin Concent 32.8 g/dl 33.6 g/dl Platelet Count 179 K/uL 192 K/uL Mean Platelet Volume 8.8 fL 8.9 fL Neutrophils (%) (Auto) 68.4 % 63.1 % Lymphocytes (%) (Auto) 21.5 % 26.0 % Monocytes (%) (Auto) 7.1 % 6.9 % Eosinophils (%) (Auto) 2.6 % 3.4 % Basophils (%) (Auto) 0.2 % 0.3 % Neutrophils # (Auto) 6.41 K/uL 5.57 K/uL Lymphocytes # (Auto) 2.02 K/uL 2.30 K/uL Monocytes # (Auto) 0.67 K/uL 0.61 K/uL Eosinophils # (Auto) 0.24 K/uL 0.30 K/uL Basophils # (Auto) 0.02 K/uL 0.03 K/uL RDW Standard Deviation 43.6 fL 42.3 fL RDW Coefficient of Variation 12.9 % 12.7 % Immature Granulocyte % (Auto) 0.2 % 0.3 % Immature Granulocyte # (Auto) 0.02 K/uL 0.03 K/uL Sodium Level 141 mmol/L Potassium Level 4.4 mmol/L Chloride Level 104 mmol/L Carbon Dioxide Level 31 mmol/L Anion Gap 6.0 mmol/L Blood Urea Nitrogen 7 mg/dl Creatinine 1.30 mg/dl Est Creatinine Clear Calc Drug Dose 81.7 ml/min Estimated GFR () 74.3 Estimated GFR (Non- 64.1 BUN/Creatinine Ratio 5.4 Random Glucose 89 mg/dl Calcium Level 8.9 mg/dl Bedside Glucose 86 mg/dl Assessment and Plan Patient is a 50 year old male with abdominal pain following EGD w/ dilation found to have partial thickness tear of mid esophagus with no signs of free air or true perforation. Clinically doing well and abdominal pain is much resolved. Repeat imaging has been benign. Continue IVF while admitted Continue broad spectrum ABX while admitted Pain control IV PPI --> 20 mg PPI BID at discharge x 1 month --> 20 mg PPI once daily Avoid NSAIDs Advance diet to clear liquids today --> full liquid diet at discharge Follow up in office for GERD - I will arrange this GI to sign off. No GI contraindication to discharge if tolerating clear liquid - -> full liquid diet. Please call with any questions or concerns.
[2016-10-25 08:41] LABS: BUN/CREATININE RATIO 8.3 (10-20); CREATININE 1.1 mg/dl (0.60-1.40); POTASSIUM 3.9 mmol/L (3.5-5.1)
[2016-10-25] MEDS: PANTOprazole INJ 40 MG in SYRINGE 0 ML IV SCH (08:49)
[2016-10-25] MEDS: FLUTICASONE PROPIONATE NA SPR 16 GM BTL NAE SCH (08:49)
[2016-10-25 08:54] LABS: CALCIUM 9.3 mg/dl (8.5-10.1)
--- NOTE | 2016-10-25 09:24 | Progress Note ---
Internal Med Progress Note Date of Service: Oct 25, 2016. Provider Documentation: SUBJECTIVE: Seen and examined at bedside. States abd pain is much improved. Denies nausea, vomiting, chest pain, SOB, fever, chills. 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 Follow up with your general cargo clerk and your thoracic surgeon as advised Seek immediate medical attention if your symptoms reoccur or worsen Avoid NSAIDs as advised. Can use Tylenol as needed for pain PROCEDURES: CT chest: 1. Linear partial thickness tear of the mid thoracic esophagus. 2. Contrast is seen anteriorly in the left lateral wall of the mid thoracic esophagus, with no evidence for extrinsic extension of contrast to the surrounding soft tissues.. 3. This is consistent with a partial thickness tear of the esophageal wall. 4. Lungs appear clear with the stomach unremarkable. CXR: No active disease in the chest Vital Signs: Date Time Temp Pulse Resp B/P (MAP) Pulse Ox O2 Delivery O2 Flow Rate FiO2 10/25/16 07:32 36.7 79 18 144/91 (108) 96 Room Air 10/25/16 00:00 96 Room Air 10/24/16 23:09 36.8 61 18 122/78 (93) 96 Room Air 10/24/16 20:00 Room Air 10/24/16 16:00 Room Air 10/24/16 15:56 36.7 59 16 140/94 (109) 95 Room Air 10/24/16 13:20 36.9 75 16 140/95 (110) 96 Room Air 10/24/16 12:46 36.8 74 18 94 10/24/16 12:00 Room Air 10/24/16 11:34 36.8 74 18 134/90 (105) 94 Room Air Lab Results: Results Past 24 Hours Test 10/24/16 10:30 10/24/16 11:28 10/25/16 07:07 Range/Units White Blood Count 9.38 8.84 4.8-10.8 K/uL Red Blood Count 4.62 4.83 4.7-6.1 M/uL Hemoglobin 14.0 14.8 14.0-18.0 g/dL Hematocrit 42.7 44.0 42-52 % Mean Corpuscular Volume 92.4 91.1 80-100 fL Mean Corpuscular Hemoglobin 30.3 30.6 25-34 pg Mean Corpuscular Hemoglobin Concent 32.8 33.6 32-36 g/dl Platelet Count 179 192 130-400 K/uL Mean Platelet Volume 8.8 8.9 7.4-10.4 fL Neutrophils (%) (Auto) 68.4 63.1 % Lymphocytes (%) (Auto) 21.5 26.0 % Monocytes (%) (Auto) 7.1 6.9 % Eosinophils (%) (Auto) 2.6 3.4 % Basophils (%) (Auto) 0.2 0.3 % Neutrophils # (Auto) 6.41 5.57 1.4-6.5 K/uL Lymphocytes # (Auto) 2.02 2.30 1.2-3.4 K/uL Monocytes # (Auto) 0.67 0.61 0.11-0.59 K/uL Eosinophils # (Auto) 0.24 0.30 0-0.5 K/uL Basophils # (Auto) 0.02 0.03 0-0.2 K/uL RDW Standard Deviation 43.6 42.3 36.4-46.3 fL RDW Coefficient of Variation 12.9 12.7 11.5-14.5 % Immature Granulocyte % (Auto) 0.2 0.3 % Immature Granulocyte # (Auto) 0.02 0.03 0.00-0.02 K/uL Sodium Level 141 141 136-145 mmol/L Potassium Level 4.4 3.9 3.5-5.1 mmol/L Chloride Level 104 104 98-107 mmol/L Carbon Dioxide Level 31 26 21-32 mmol/L Anion Gap 6.0 11.0 3-11 mmol/L Blood Urea Nitrogen 7 9 7-18 mg/dl Creatinine 1.30 1.10 0.60-1.40 mg/dl Est Creatinine Clear Calc Drug Dose 81.7 96.5 ml/min Estimated GFR () 74.3 90.9 Estimated GFR (Non- 64.1 78.4 BUN/Creatinine Ratio 5.4 8.3 10-20 Random Glucose 89 79 70-99 mg/dl Calcium Level 8.9 9.3 8.5-10.1 mg/dl Bedside Glucose 86 70-99 mg/dl
[2016-10-25] MEDS ORDERED: PRT/20 PO (09:40)
--- NOTE | 2016-10-25 09:43 | Discharge Summary ---
Discharge Summary Date of Service Oct 25, 2016. Discharge Summary Admission Date: Oct 23, 2016 at 17:40 Discharge Date: Oct 25, 2016 Discharge Disposition: Home Principal Diagnosis: Esophageal Tear Procedures: CT chest: 1. Linear partial thickness tear of the mid thoracic esophagus. 2. Contrast is seen anteriorly in the left lateral wall of the mid thoracic esophagus, with no evidence for extrinsic extension of contrast to the surrounding soft tissues.. 3. This is consistent with a partial thickness tear of the esophageal wall. 4. Lungs appear clear with the stomach unremarkable. CXR: No active disease in the chest. Consultations: GI, CT surgery Pending Studies/Follow-Up: Follow up with on 10/30/16 at 11:00AM Continue Protonix twice a day for one month and then once daily after that. Follow up with your glass melt operator and your thoracic surgeon as advised Seek immediate medical attention if your symptoms reoccur or worsen Avoid NSAIDs as advised. Can use Tylenol as needed for pain Medication Reconciliation New Medications: Pantoprazole (Protonix) 20 Mg Tab 20 MG PO BID for 30 Days, #60 TAB 1 Refill Start taking twice a day for 1 month and then once a day Continued Medications: Fexofenadine-Pseudoephedrine (Lianet-D 24 Hour Allergy) 1 Tab Tab 1 TAB PO DAILY, TAB Fluticasone Propionate (Flonase Nasal [place]) 120 Sprays/6000 Mcg [place] 2 SPRAYS FLORY DAILY, INHA Admission Information HPI (per Admitting provider): Patient is a 50 Yr male with PMH of Schatzki's ring, Pitmal seizures as a child and no other significant PMH presents with history of LUQ abdominal pain after having EGD this morning. Patient had EGD for dilatation of the ring. Patient complains of LUQ abdominal pain which he describes as sharp, 8/10 intensity, radiates to back and abdomen, intermittent which lasts for few seconds, pain is worse with eating, lying down, sitting and is relived with standing. Currently denies any history of SOB, fever, chills, chest pain, nausea, vomiting, diarrhea , bloody stools, dizziness. CT chest is suggestive of linear partial thickness tear of the mid thoracic esophagus. 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, no motor/sensory deficits, alert , normal mood/affect, oriented x 3 Skin: normal color, warm/dry Hospital Course Linear partial thickness mid thoracic esophageal Tear Presented with LUQ abdominal Pain S/P EGD S/P IV fluids Morphine/Tylenol PRN for pain control Continue PPI BID for 1 month and once daily S/P IV Zosyn and Flagyl empirically Appreciate GI and CT surgery input H/O Schatzki's ring S/P EGD and dilatation on 10/23/16 Appreciate GI input H/O Petit mal seizures as a child No seizures since many years Currently not on any medications DVT px: SCDs Disposition: Plan to discharge home today Follow up with on 10/30/16 at 11:00AM Continue Protonix twice a day for one month and then once daily after that. Follow up with your glass melt operator and your thoracic surgeon as advised Seek immediate medical attention if your symptoms reoccur or worsen Avoid NSAIDs as advised. Can use Tylenol as needed for pain PROCEDURES: CT chest: 1. Linear partial thickness tear of the mid thoracic esophagus. 2. Contrast is seen anteriorly in the left lateral wall of the mid thoracic esophagus, with no evidence for extrinsic extension of contrast to the surrounding soft tissues.. 3. This is consistent with a partial thickness tear of the esophageal wall. 4. Lungs appear clear with the stomach unremarkable. CXR: No active disease in the chest Total time spent on discharge = 36 minutes This includes examination of the patient, discharge planning, medication reconciliation, and communication with other providers. Discharge Instructions Discharge Instructions Date of Service Oct 25, 2016. Admission Reason for Admission: Esophageal Tear Discharge Discharge Diagnosis / Problem: Esophageal Tear Discharge Goals Goal(s): Decrease discomfort, Improve function Activity Recommendations Activity Limitations: resume your previous activity Exercise/Sports Limitations: as tolerated . Instructions / Follow-Up Instructions / Follow-Up Follow up with on 10/30/16 at 11:00AM Continue Protonix twice a day for one month and then once daily after that. Follow up with your glass melt operator and your thoracic surgeon as advised Seek immediate medical attention if your symptoms reoccur or worsen Avoid NSAIDs as advised. Can use Tylenol as needed for pain Current Hospital Diet Patient's current hospital diet: Low Fiber Diet Discharge Diet Recommended Diet: Regular Diet Pending Studies Studies pending at discharge: no Medical Emergencies . Who to Call and When: Medical Emergencies: If at any time you feel your situation is an emergency, please call 911 immediately. . Non-Emergent Contact Non-Emergency issues call your: Primary Care Provider, Auto Parts Handler Call Non-Emergent contact if: you have a fever, your pain is not controlled, your pain is worsening, your pain is unusual for you, you have any medication questions . . "Provider Documentation" section prepared by Jeremi Wong. . VTE Core Measure Inpt VTE Proph given/why not?: SCD's
[2016-10-25 09:55] VITALS: BP 144/91; PULSE 79; TEMP 36.7; O2SAT 96
[2017-02-10] MEDS ORDERED: PANT20TA2 PO (00:05)
== END 2016-10-25 10:35 | disposition home or self-care (01) ==
LOC: C.EDB 15:00 → C.2T 17:40 → CANRESERV 17:49 → ENRESERV 17:49 → CANRESERV 18:18 → ENRESERV 18:18 → EDBEDREQSVC 18:25 → ENRESERV 19:48 → EDBEDREQ 10-24 11:16 → ENRESERV 10-24 12:07 → C.MED 10-24 13:12
PROVIDERS: ADMIT Internal Medicine; ATTEND Internal Medicine
DX: K91.89 Other postprocedural complications and disorders of digestive system (principal); K22.2 Esophageal obstruction; K21.9 Gastro-esophageal reflux disease without esophagitis; K44.9 Diaphragmatic hernia without obstruction or gangrene; I31.8 Other specified diseases of pericardium; Z79.899 Other long term (current) drug therapy

== ENCOUNTER → 2016-11-07 | Outpatient (CLI) | payer OTHER ==
[~2016-11-07] MED LIST changes: +FEXO1TAB58 PO; +FLUT0.15 NAE; +PANT20TA2 PO; +PRT/20 PO
--- NOTE | 2016-11-07 12:58 | DIAGNOSTIC IMAGING REPORT ---
CT SCAN OF THE CHEST WITHOUT IV CONTRAST CLINICAL HISTORY: Follow-up esophageal tear. COMPARISON STUDY: Chest CT dated 10/23/2016. TECHNIQUE: CT scan of the thorax was performed from the thoracic inlet to the upper abdomen. Images are reviewed in the axial, sagittal, and coronal planes. IV contrast was not administered for this examination as per the referring clinician. CT DOSE: 245.95 mGycm FINDINGS: Thyroid: Imaged portions of the thyroid gland are normal in size and attenuation. Thoracic aorta: The thoracic aorta is normal in caliber and demonstrates standard 3-vessel arch anatomy. Heart: The heart is normal in size and without pericardial effusion. A 6 cm lobulated pericardial cyst is again noted in the right cardiophrenic sulcus. The pulmonary trunk is normal in caliber. Lungs and pleural spaces: A 2 mm pulmonary nodule at the right lung base image #238 and a 2 mm right middle lobe nodule on image #222 are unchanged and of doubtful significance. The lungs and pleural spaces are otherwise clear. The trachea and central airways are patent. No pneumothorax is identified. Mediastinum: There is no mediastinal lymphadenopathy. Carlie: Not well assessed without IV contrast. Axillae: There is no axillary lymphadenopathy. Esophagus: The esophagus is normal as visualized by CT. There is no paraesophageal inflammation or pneumomediastinum. Upper abdomen: A 10 mm cyst is noted in the right lobe of the liver. Partially visualized upper abdominal viscera is otherwise within normal limits. Skeletal structures: No lytic or blastic bony lesions are seen. IMPRESSION: 1. Esophagus is normal as visualized by CT. 2. The lungs are clear. 3. Additional findings as above. Electronically signed by: Tommie Quigley M.D. 11/07/2016 12:57 PM Dictated Date/Time: 11/07/2016 12:52 PM
== END | disposition home or self-care (01) ==
LOC: C.CTS 12:30
PROVIDERS: ATTEND Surgery
DX: S11.21XD Laceration without foreign body of pharynx and cervical esophagus, subsequent encounter (principal); X58.XXXD Exposure to other specified factors, subsequent encounter

== ENCOUNTER 2017-02-09 23:38 | Emergency (ER) | payer OTHER ==
[~2017-02-09] VITALS: Ht 182.9 cm; Wt 85.7 kg
[~2017-02-09 23:38] MED LIST changes: -FEXO1TAB58 PO; -FLUT0.15 NAE; -PANT20TA2 PO
[2017-02-09 23:41] VITALS: BP 149/99; PULSE 99; TEMP 36.6; O2SAT 94; Ht 182.9 cm; Wt 85.7 kg
[2017-02-10] MEDS ORDERED: DIPHTHERIA/TETANUS/PERTUSSIS 0.5 ML SYR/VIAL IM. ONE
--- NOTE | 2017-02-10 00:01 | EMERGENCY ROOM VISIT NOTE ---
History Report prepared by Tanesha: Deepa Adams Under the Supervision of: Dr. Yazan Zacarias D.O. 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 The patient was at his friend's house for the football game. They were celebrating at the end of the game when the dogs ran up and bit him. He was bit in the groin and the legs by 2 nowak retrievers and 2 bulldogs. He ran out of the house and drove to the ED. He is concerned he needs a tetanus shot. The dogs ripped through his jeans. The dogs are domestic and spend their time in a fenced yard. Source of History: patient Onset: PRECISION INSTRUMENT AND TOOL MAKER Position: other (global) Quality: other (dog bites) Timing: other (episodic) Note: Pt reports groin bite, leg bites. Review of Systems See HPI for pertinent positives & negatives. A total of 10 systems reviewed and were otherwise negative. Past Medical & Surgical Medical Problems: (1) GERD (gastroesophageal reflux disease) Family History No pertinent family history stated. Social History Smoking Status: Never Smoker Alcohol Use: occasionally Drug Use: none Marital Status: Housing Status: lives alone Occupation Status: employed Current/Historical Medications Scheduled Fexofenadine-Pseudoephedrine (Lianet-D 24 Hour Allergy), 1 TAB PO DAILY Fluticasone Propionate (Flonase Nasal [place]), 2 SPRAYS FLORY DAILY Pantoprazole (Protonix), 20 MG PO BID Allergies Coded Allergies: No Known Allergies (Unverified , 10/23/16) Physical Exam Vital Signs Date Time Temp Pulse Resp B/P (MAP) Pulse Ox O2 Delivery O2 Flow Rate FiO2 02/09/17 23:41 36.6 99 18 149/99 94 Room Air Physical Exam CONSTITUTIONAL/VITAL SIGNS: Reviewed / noted above. GENERAL: Non-toxic in appearance. INTEGUMENTARY: Warm, dry, and [place]. HEAD: Normocephalic. EYES: without scleral icterus or trauma. ENT/OROPHARYNX: clear and moist. LYMPHADENOPATHY/NECK: Is supple without lymphadenopathy or meningismus. RESPIRATORY: Lungs clear and equal. CARDIOVASCULAR: Regular rate and rhythm. GI/ABDOMEN: Soft and nontender. No organomegaly or pulsatile mass. No rebound or guarding. Normal bowel sounds. : Superficial abrasion to the scrotum. EXTREMITIES: Warm and well perfused. Multiple abrasions to the lower extremities bilaterally. BACK: No CVA tenderness. NEUROLOGICAL: Intact without focal deficits. PSYCHIATRIC: normal affect. MUSCULOSKELETAL: Normally developed with good muscle tone. Medical Decision & Procedures ED Course 2346: Previous medical records were reviewed. The patient was evaluated in room A3. A complete history and physical examination was performed. I discussed the results and findings with the patient. He verbalized agreement of the treatment plan. He was discharged home. 0000: Adacel Inj 0.5 ml IM. Medical Decision No significant lacerations, no deep wounds, no evidence of tendon, nerve, or vascular injury. Rabies felt to be unlikely. The patient presents shortly after being attacked by some domestic dogs. The patient was at a friend's house. There is elevated after a touchdown and several dogs jumped up on the patient and bit the patient in his lower legs and one in the scrotum. He was wearing blue jeans and underwear at the time the patient's exam reveals some superficial abrasions to the lower extremities and to the scrotum. There are no deep wounds. There are no actual teeth sal[place]on or bite wound suggesting the mouth was completely surrounding in extremity or his scrotum. The patient's tetanus shot was provided. I do not feel he needs rabies vaccines. He will contact his friend to make sure that the shots are up- to-date. He states that the dogs are since then and they did not go into unmonitored areas. Medication Reconcilliation Current Medication List: was personally reviewed by me Blood Pressure Screening Patient's blood pressure: Elevated blood pressure Blood pressure disposition: Elevated BP felt to be situational Impression Primary Impression: Dog bite Additional Impression: Abrasions of multiple sites Scribe Attestation The scribe's documentation has been prepared under my direction and personally reviewed by me in its entirety. I confirm that the note above accurately reflects all work, treatment, procedures, and medical decision making performed by me. Departure Information Dispostion Home / Self-Care Referrals No Doctor, Assigned (PCP) Patient Instructions ED Bite Dog, My [facility] Additional Instructions Contact your friend to make sure that the dogs immunizations are up-to-date. Watch wounds for infection. Contact your doctor or return if you develop increasing redness, increasing pain, increasing swelling, fevers, or other concerning symptoms. You were given a tetanus shot today. Problem Qualifiers
[2017-02-10] MEDS ORDERED: FEXO1TAB58 PO (00:04)
[2017-02-10] MEDS ORDERED: FLUT0.15 NAE (00:04)
[2017-02-10] MEDS ORDERED: PANT20TA PO (00:05)
== END 2017-02-10 00:22 | disposition home or self-care (01) ==
LOC: C.EDB 23:39 → C.EDA 02-10 00:22
DX: S80.811A Abrasion, right lower leg, initial encounter (principal); S80.812A Abrasion, left lower leg, initial encounter; S30.813A Abrasion of scrotum and testes, initial encounter; W54.0XXA Bitten by dog, initial encounter; Y92.89 Other specified places as the place of occurrence of the external cause; K21.9 Gastro-esophageal reflux disease without esophagitis; Z79.899 Other long term (current) drug therapy; Z23 Encounter for immunization